=== PATIENT | female | born 1970 | race Two or more races ===

== ENCOUNTER → 2024-09-06 08:44 | Outpatient (REF) | payer OTHER, SELFPAY | LOC: RAD 08:44 | PROVIDERS: ATTENDING PHYSICIAN Internal Medicine Cardiovascular Disease; FAMILY PHYSICIAN Internal Medicine | DX: R07.2 Precordial pain (principal); R42 Dizziness and giddiness; R60.9 Edema, unspecified; R00.2 Palpitations; R06.02 Shortness of breath; E78.5 Hyperlipidemia, unspecified | CPT/HCPCS: 75574; Q9967 ==